=== PATIENT | female | born 1990 ===

== ENCOUNTER 2017-03-07 23:35 | Emergency (ER) | payer MEDICAID ==
[2017-03-07 23:36] VITALS: BMI 30.4
[2017-03-07 23:49] VITALS: BP 122/59; PULSE 76; RESP 18; TEMP 98; O2SAT 99
--- NOTE | 2017-03-08 00:40 | ED PDOC ---
HPI: Trauma/Fall - HPI Time Seen by Provider: 03/07/17 23:51 Chief Complaint (Nursing): Back Pain Chief Complaint (Provider): Back pain, neck pain History Per: Patient History/Exam Limitations: no limitations Onset/Duration Of Symptoms: Days Injury Occurred (Timing): Days Ago: (1) Associated Symptoms: LOC Additional History Per: Patient Additional Complaint(s): The patient is a 26yo female, presents to ED for evaluation of continued neck and back pain s/p falling in the shower yesterday. Patient reports she landed on her right side and states she lost consciousness. She was seen and evaluated at [facility] yesterday and was discharged home with prescription for valium and ibuprofen. Patient states she presents today due to continued pain and is also complaining of right sided lower back pain. She denies any numbness , tingling or urinary symptoms. Patient offers no additional medical complaints. Past Medical History Reviewed: Historical Data, Nursing Documentation, Vital Signs Vital Signs: Last Vital Signs Temp 98 F 03/07/17 23:45 Pulse 76 03/07/17 23:45 Resp 18 03/07/17 23:45 BP 122/59 L 03/07/17 23:45 Pulse Ox 99 03/08/17 00:58 - Medical History PMH: Asthma, Hypothyroidism Denies: Chronic Kidney Disease - Surgical History Surgical History: No Surg Hx - Family History Family History: States: Unknown Family Hx - Immunization History Hx Tetanus Toxoid Vaccination: No Hx Influenza Vaccination: Yes Hx Pneumococcal Vaccination: No - Home Medications Home Medications: Ambulatory Orders Medication Instructions Recorded Levothyroxine [Synthroid] 1 tab PO DAILY 05/03/16 Ibuprofen [Motrin] 600 mg PO Q6H #30 tab 03/07/17 diaZEpam [Valium] 5 mg PO TID #14 tab 03/07/17 Cyclobenzaprine [Cyclobenzaprine 10 mg PO BID #15 tab 03/08/17 HCl] Ketorolac Tromethamine [Toradol] 10 mg PO Q8 #30 tab 03/08/17 Lidocaine 5% [Lidoderm] 1 patch TP DAILY #10 patch 03/08/17 - Allergies Allergies/Adverse Reactions: Allergies Allergy/AdvReac Type Severity Reaction Status Date / Time bishop Allergy ANAPHYLAXIS Verified 03/06/17 21:10 Review of Systems ROS Statement: Except As Marked, All Systems Reviewed And Found Negative Musculoskeletal: Positive for: Neck Pain, Back Pain Physical Exam - Reviewed Nursing Documentation Reviewed: Yes Vital Signs Reviewed: Yes - Physical Exam Appears: Positive for: Well, Non-toxic, No Acute Distress Head Exam: Positive for: ATRAUMATIC, NORMAL INSPECTION, NORMOCEPHALIC Skin: Positive for: Normal Color, Warm, DRY Eye Exam: Positive for: EOMI, Normal appearance, PERRL Neck: Positive for: Normal, Painless ROM Cardiovascular/Chest: Positive for: Regular Rate, Rhythm. Negative for: Murmur Respiratory: Positive for: Normal Breath Sounds. Negative for: Respiratory Distress Back: Positive for: Normal Inspection, Other (right lumbar para-vertebral tenderness). Negative for: Vertebral Tenderness Extremity: Positive for: Normal ROM, Other (right arm in sling, Full ROM present ). Negative for: Pedal Edema, Deformity, Swelling Neurologic/Psych: Positive for: Alert, Oriented. Negative for: Motor/Sensory Deficits - ECG O2 Sat by Pulse Oximetry: 99 (RA) Pulse Ox Interpretation: Normal Medical Decision Making Medical Decision Making: Time: 9 Impression: Head and neck injury w/ muscle spasms s/p fall Plan: -- CT C-Spine -- CT Head -- Flexeril 10 mg PO -- Toradol 30 mg IM Reassess Time: 44 CT Head IMPRESSION: 1. No intracranial hemorrhage. CT C-Spine IMPRESSION: 1. No fracture. Patient reports feeling much better. Patient stable for discharge home; advised to follow up with PCP in 1-2 days. Scribe Attestation: Documented by Catrachita Diop acting as a scribe for Sharath Marie MD. Provider Attestation: All medical record entries made by the Scribe were at my direction and personally dictated by me. I have reviewed the chart and agree that the record accurately reflects my personal performance of the history, physical exam, medical decision making, and the department course for this patient. I have also personally directed, reviewed, and agree with the discharge instructions and disposition. Disposition - Clinical Impression Clinical Impression: Low back pain, Sprain of cervical neck - Disposition Referrals: Jahaira Benitez MD [Primary Care Provider] - Disposition: Routine/Home Disposition Time: 00:45 Condition: STABLE Prescriptions: Cyclobenzaprine [Cyclobenzaprine HCl] 10 mg PO BID #15 tab Ketorolac Tromethamine [Toradol] 10 mg PO Q8 #30 tab Lidocaine 5% [Lidoderm] 1 patch TP DAILY #10 patch Instructions: Cervical Strain (DC), Muscle Spasm (ED) Forms: [facility] (Gabonese), [facility] ED School/Work Excuse
--- NOTE | 2017-03-08 00:45 | CT ---
EXAM: CT Head Without Intravenous Contrast CLINICAL HISTORY: 26 years old, female; Injury or trauma; Fall; Additional info: Fell yesterday, +loc TECHNIQUE: Axial computed tomography images of the head/brain without intravenous contrast. All CT scans at this facility use one or more dose reduction techniques, viz.: automated exposure control; ma/kV adjustment per patient size (including targeted exams where dose is matched to indication; i.e. head); or iterative reconstruction technique. Coronal and sagittal reformatted images were created and reviewed. COMPARISON: No relevant prior studies available. FINDINGS: Brain: No intracranial hemorrhage. No mass. No edema. Ventricles: No hydrocephalus. Bones/joints: No acute fracture. Soft tissues: Unremarkable. Sinuses: No acute sinusitis. Mastoid air cells: No mastoid effusion. Orbits: Unremarkable as visualized. IMPRESSION: 1. No intracranial hemorrhage.
--- NOTE | 2017-03-08 00:47 | CT ---
EXAM: CT Cervical Spine Without Intravenous Contrast CLINICAL HISTORY: 26 years old, female; Injury or trauma; Fall; Initial encounter; Blunt trauma; Additional info: Fell yesterday w/ loc, neck pain TECHNIQUE: Axial computed tomography images of the cervical spine without intravenous contrast. All CT scans at this facility use one or more dose reduction techniques, viz.: automated exposure control; ma/kV adjustment per patient size (including targeted exams where dose is matched to indication; i.e. head); or iterative reconstruction technique. Coronal reformatted images were created and reviewed. COMPARISON: No relevant prior studies available. FINDINGS: Vertebrae: No acute fracture. Straightening of cervical spine. Discs/spinal canal/neural foramina: No significant spinal canal stenosis. Soft tissues: Unremarkable. Lung apices: Unremarkable as visualized. IMPRESSION: 1. No fracture.
== END 2017-03-08 01:14 | disposition home or self-care (01) ==
LOC: H.ER 23:35
DX: S13.4XXA Sprain of ligaments of cervical spine, initial encounter (principal); M54.9 Dorsalgia, unspecified; W19.XXXA Unspecified fall, initial encounter; Y92.002 Bathroom of unspecified non-institutional (private) residence as the place of occurrence of the external cause; E03.9 Hypothyroidism, unspecified
CPT/HCPCS: 70450; 72125; 81025; 96372; 99282; J1885

== ENCOUNTER 2017-03-12 11:04 | Emergency (ER) | payer MEDICAID ==
[2017-03-12 11:04] VITALS: BMI 30.4
[2017-03-12 11:15] VITALS: PULSE 81; RESP 16; TEMP 98.8; O2SAT 100
--- NOTE | 2017-03-12 13:18 | CT ---
PROCEDURE: CT Lumbar Spine without contrast HISTORY: injury from fall COMPARISON: Comparison made with radiographs of the lumbar spine 06/18/2013 TECHNIQUE: Axial computed tomography images were obtained of the lumbar spine without the use of intravenous contrast. Coronal and sagittal reformatted images were created and reviewed. Radiation dose: Total exam DLP = 1421.21 mGy-cm. This CT exam was performed using one or more of the following dose reduction techniques: Automated exposure control, adjustment of the mA and/or kV according to patient size, and/or use of iterative reconstruction technique. FINDINGS: VERTEBRAE: Unremarkable. No fracture. Normal alignment. DISCS/SPINAL CANAL/NEURAL FORAMINA: At the L5-S1 level, there is a small focal central and bilateral disc bulge minimally flattens the ventral surfaces of the thecal sac. The overall central canal appears adequate. Facets are slightly overgrown. Exit foramina are also adequate despite encroachment of disc into the proximal inferior margins of both exit foramina. At the L4-L5 level, there is minor broad-based bulge of the posterior annulus which also extends slightly into the proximal inferior margins of both exit foramina. . Facets are slightly prominent. Central canal and exit foramina appear adequate At the L3-L4 level, minimal bulge of the posterior annulus is present. . Central canal and exit foramina are also adequate. PARASPINAL SOFT TISSUES: Paraspinal soft tissues grossly unremarkable OTHER FINDINGS: In situ Copper-T IUD IMPRESSION: No acute fractures. Minor disc bulging changes most pronounced the L5-S1 level. See above discussion for additional details and findings.
--- NOTE | 2017-03-12 13:47 | ED PDOC ---
HPI: Back Time Seen by Provider: 03/12/17 11:46 Chief Complaint (Nursing): Back Pain Chief Complaint (Provider): back pain History Per: Patient History/Exam Limitations: no limitations Additional Complaint(s): 26yo F for eval of lumbar spine injury sustained last week after a fall states that she has tingling in LE with spasm. denies dysuria, hematuira, polyuria, abd pain fever Past Medical History Reviewed: Historical Data, Nursing Documentation, Vital Signs Vital Signs: Last Vital Signs Temp 98.8 F 03/12/17 11:12 Pulse 81 03/12/17 11:12 Resp 16 03/12/17 11:12 BP 112/73 03/12/17 11:12 Pulse Ox 100 03/12/17 11:12 - Medical History PMH: Asthma, Hypothyroidism Denies: Chronic Kidney Disease - Family History Family History: States: Unknown Family Hx - Immunization History Hx Tetanus Toxoid Vaccination: No Hx Influenza Vaccination: Yes Hx Pneumococcal Vaccination: No - Home Medications Home Medications: Ambulatory Orders Medication Instructions Recorded Levothyroxine [Synthroid] 1 tab PO DAILY 05/03/16 Ibuprofen [Motrin] 600 mg PO Q6H #30 tab 03/07/17 diaZEpam [Valium] 5 mg PO TID #14 tab 03/07/17 Cyclobenzaprine [Cyclobenzaprine 10 mg PO BID #15 tab 03/08/17 HCl] Ketorolac Tromethamine [Toradol] 10 mg PO Q8 #30 tab 03/08/17 Lidocaine 5% [Lidoderm] 1 patch TP DAILY #10 patch 03/08/17 Cyclobenzaprine [Cyclobenzaprine 10 mg PO BID #14 tab 03/12/17 HCl] Ibuprofen [Motrin] 400 mg PO Q6 #30 tab 03/12/17 - Allergies Allergies/Adverse Reactions: Allergies Allergy/AdvReac Type Severity Reaction Status Date / Time bishop Allergy ANAPHYLAXIS Verified 03/06/17 21:10 Review of Systems ROS Statement: Except As Marked, All Systems Reviewed And Found Negative Respiratory: Negative for: Cough, Shortness of Breath Gastrointestinal: Negative for: Nausea, Vomiting, Abdominal Pain Musculoskeletal: Positive for: Back Pain Physical Exam - Reviewed Nursing Documentation Reviewed: Yes Vital Signs Reviewed: Yes - Physical Exam Appears: Positive for: Well, Non-toxic, No Acute Distress Skin: Positive for: Normal Color, Warm Cardiovascular/Chest: Positive for: Regular Rate, Rhythm Respiratory: Positive for: CNT, Normal Breath Sounds Gastrointestinal/Abdominal: Positive for: Normal Exam, Bowel Sounds, Soft, Tenderness Back: Positive for: Normal Inspection. Negative for: L CVA Tenderness, R CVA Tenderness Extremity: Positive for: Normal ROM Neurologic/Psych: Positive for: Alert, Oriented - ECG O2 Sat by Pulse Oximetry: 100 - CT Scan/US ct head Other Rad Studies (CT/US): Radiology Report Reviewed (lumbar herniation) Medical Decision Making Medical Decision Making: dx: lumbar herniation tx: motrin flexril [facility] Disposition - Clinical Impression Clinical Impression: Back pain - Patient ED Disposition Is Patient to be Admitted: No Counseled Patient/Family Regarding: Studies Performed, Diagnosis, Need For Followup, Rx Given - Disposition Disposition: Routine/Home Disposition Time: 13:49 Condition: STABLE Prescriptions: Cyclobenzaprine [Cyclobenzaprine HCl] 10 mg PO BID #14 tab Ibuprofen [Motrin] 400 mg PO Q6 #30 tab Instructions: Lumbar Disc Herniation (ED), Back Exercises (ED) Forms: [employer] (Green[place]ic)
[2017-03-12 14:09] VITALS: BP 112/77
== END 2017-03-12 14:13 | disposition home or self-care (01) ==
LOC: H.ER 11:04
DX: M54.9 Dorsalgia, unspecified (principal); E03.9 Hypothyroidism, unspecified